=== PATIENT | male | born 1990 | race Caucasian/White ===

== ENCOUNTER 2024-07-25 01:04 | Emergency (ER) | payer OTHER, SELFPAY ==
[2024-07-25 01:06] VITALS: BP 154/86
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
== END 2024-07-25 01:55 ==
LOC: EMR 01:04
PROVIDERS: EMERGENCY PHYSICIAN Student in an Organized Health Care Education/Training Program
DX: S00.531A Contusion of lip, initial encounter (principal); Y04.2XXA Assault by strike against or bumped into by another person, initial encounter
CPT/HCPCS: 99284; 70450